=== PATIENT | female | born 1995 | race African-American/Black ===

== ENCOUNTER 2022-10-22 07:28 | Inpatient (IN) | payer MEDICAID, OTHER ==
[~2022-10-22] VITALS: Ht 154.9 cm; Wt 92.1 kg
[2022-10-22] MEDS ORDERED: NALOXONE HCL 0.4 MG/ML 1ML VIAL IM PRN (10:00)
[2022-10-22] MEDS ORDERED: RHO(D) IMMUNE GLOBULIN 300 MCG/SYR IM NR (10:00)
[2022-10-22] MEDS ORDERED: LIDOCAINE HCL 1% 20ML VIAL (Pyxis) INJ INFIL SCH (10:00)
[2022-10-22] MEDS ORDERED: CARBOPROST TROMETHAMINE 250 MCG/ML AMPUL IM PRN (10:00)
[2022-10-22] MEDS ORDERED: METHYLERGONOVINE MALEATE 0.2 MG/ML IM PRN (10:00)
[2022-10-22 11:28] LABS: CLARITY URINE CLEAR (CLEAR); COLOR URINE YELLOW (YELLOW); KETONES URINE NEGATIVE (NEGATIVE); LEUKOCYTE ESTERASE URINE 2+ (NEGATIVE); NITRITE URINE NEGATIVE (NEGATIVE); OCCULT BLOOD URINE NEGATIVE (NEGATIVE); PROTEIN URINE NEGATIVE (NEGATIVE); SPECIFIC GRAVITY URINE 1.008 (1.005-1.030); UROBILINOGEN URINE 0.2 E.U./dL (0.2-1.0)
[2022-10-22 11:40] LABS: BASOPHILS % 0.8 % (0.0-2.0); EOSINOPHILS % 0.6 % (0.0-5.0); HEMATOCRIT. 34.5 % (36.0-48.0); HEMOGLOBIN. 11.2 g/dL (12.0-16.0); LYMPHOCYTES % 19.7 % (20.0-50.0); MEAN CORPUSCULAR HEMOGLOBIN 28.1 pg (28.0-32.0); MEAN CORPUSCULAR VOLUME 86.5 fL (81.0-99.0); MEAN PLATELET VOLUME 10.6 fl (7.4-10.4); MONOCYTES % 7.8 % (2.0-8.0); NEUTROPHILS % 71.1 % (40.0-76.0); PLATELET 224 x1000/uL (130-400); RED BLOOD CELL COUNT 3.99 mill/uL (4.2-5.4); RED CELL DISTRIBUTION WIDTH 15.9 % (11.6-14.6)
[2022-10-22 11:46] LABS: *AMPHETAMINES SCREEN URINE NEGATIVE (NEGATIVE); *BARBITURATES SCREEN URINE NEGATIVE (NEGATIVE); *BENZODIAZEPINES SCREEN URINE NEGATIVE (NEGATIVE); *COCAINE SCREEN URINE NEGATIVE (NEGATIVE); CANNABINOID URINE SCREEN NEGATIVE (NEGATIVE); METHADONE URINE SCREEN NEGATIVE (NEGATIVE); OPIATES URINE SCREEN NEGATIVE (NEGATIVE); PHENCYCLIDINE URINE SCREEN NEGATIVE (NEGATIVE)
[2022-10-22 11:49] LABS: INR 0.9; PARTIAL THROMBOPLASTIN TIME 25.9 sec (23.4-31.0); PROTHROMBIN TIME 10.2 sec (9.6-11.0)
[2022-10-22] MEDS: LACTATED RINGERS 1,000 ML IV SCH ×2 (11:51→12:56)
[2022-10-22 12:35] LABS: HEPATITIS B SURFACE ANTIGEN NEGATIVE
[2022-10-22] MEDS: OXYTOCIN 30 UNITS/500ML NS PMX 500 ML IV SCH (13:02)
[2022-10-22] MEDS ORDERED: MEPERIDINE HCL/PF 50MG/ML CPJ IM PRN (20:45)
[2022-10-22] MEDS ORDERED: NALOXONE HCL 0.4MG/ML VIAL IV PRN (21:00)
[2022-10-23] MEDS ORDERED: ONDANSETRON HCL 4MG/2ML INJ IV PRN (03:30)
[2022-10-23] MEDS ORDERED: ROPIVACAINE HCL/PF EPIDURAL 200 ML EPI ONE (17:05)
[2022-10-23] MEDS: LACTATED RINGERS 1,000 ML IV SCH ×3 (18:00→22:29)
[2022-10-24] MEDS ORDERED: SODIUM CHLORIDE 0.9% 1,000 ML IV ONE (04:00)
[2022-10-24] MEDS: LACTATED RINGERS 1,000 ML IV SCH (04:46)
[2022-10-24] MEDS ORDERED: LIDOCAINE 2%/EPINEPHRINE 1:200,000 20 ML VIAL INJ ONE (06:00)
[2022-10-24] MEDS ORDERED: FENTANYL CITRATE/PF 50MCG/ML 2ML VIAL ONE (06:31)
[2022-10-24] MEDS ORDERED: CEFAZOLIN SODIUM 1000MG/VIAL ONE (06:52)
[2022-10-24] MEDS ORDERED: ONDANSETRON HCL 4MG/2ML INJ ONE (06:56)
[2022-10-24] MEDS ORDERED: OXYTOCIN 10 UNITS/ML 1ML ONE (06:56)
[2022-10-24] MEDS ORDERED: MORPHINE SULFATE/PF 1MG/ML 10ML AMP ONE (06:56)
[2022-10-24] MEDS ORDERED: METHYLERGONOVINE MALEATE 0.2 MG/ML ONE (07:00)
[2022-10-24] MEDS ORDERED: KETOROLAC 60MG/2ML VIAL IM ONE (07:13)
[2022-10-24] MEDS ORDERED: DIPHENHYDRAMINE 50MG/ML VIAL ONE (07:14)
[2022-10-24] MEDS ORDERED: TRANEXAMIC ACID 10 ML ONE (07:14)
[2022-10-24] MEDS ORDERED: DIPHENHYDRAMINE 50MG/ML VIAL IV PRN (08:45)
[2022-10-24] MEDS ORDERED: NALOXONE HCL 0.4 MG/ML 1ML VIAL IV PRN (08:45)
[2022-10-24] MEDS: OXYTOCIN 30 UNITS/500ML NS PMX 500 ML IV SCH ×2 (08:55→13:00)
[2022-10-24 10:30] VITALS: BP 104/60
[2022-10-24 10:45] VITALS: BP 112/62
[2022-10-24 11:15] VITALS: BP 117/73
[2022-10-24] MEDS ORDERED: OXYTOCIN 30 UNITS/500ML NS PMX 500 ML IV SCH (11:30)
[2022-10-24] MEDS ORDERED: DIPHENHYDRAMINE 25MG CAPSULE PO PRN (11:30)
[2022-10-24] MEDS ORDERED: HEMORRHOIDAL SUPP PR PRN (11:30)
[2022-10-24] MEDS ORDERED: ACETAMINOPHEN WITH CODEINE 300/30MG TABLET PO PRN (11:30)
[2022-10-24] MEDS ORDERED: IBUPROFEN 400MG TABLET PO PRN (11:30)
[2022-10-24] MEDS ORDERED: RHO(D) IMMUNE GLOBULIN 300 MCG/SYR IM PRN (11:30)
[2022-10-24] MEDS ORDERED: LANOLIN OINT 7GM TUBE TOP PRN (11:30)
[2022-10-24] MEDS: MAGNESIUM/ALUMINUM HYDROXIDE/SIMETHICONE 30ML UDC PO SCH ×2 (12:30→17:12)
[2022-10-24] MEDS: KETOROLAC 30MG/ML VIAL IV SCH ×2 (14:59→21:10)
[2022-10-24 15:25] VITALS: BP 99/53
[2022-10-24 20:00] VITALS: BP 101/64
[2022-10-24] MEDS ORDERED: DOCUSATE SODIUM 100MG CAPSULE PO SCH (21:00)
[2022-10-25 00:30] VITALS: BP 100/62
[2022-10-25] MEDS ORDERED: KETOROLAC 30MG/ML VIAL IV SCH (02:45)
[2022-10-25 03:40] VITALS: BP 100/61
[2022-10-25 06:15] LABS: HEMATOCRIT. 29.2 % (36.0-48.0); HEMOGLOBIN. 9.6 g/dL (12.0-16.0); MEAN CORPUSCULAR HEMOGLOBIN 28.3 pg (28.0-32.0); MEAN CORPUSCULAR VOLUME 85.9 fL (81.0-99.0); MEAN PLATELET VOLUME 9.6 fl (7.4-10.4); PLATELET 164 x1000/uL (130-400); RED BLOOD CELL COUNT 3.39 mill/uL (4.2-5.4); RED CELL DISTRIBUTION WIDTH 16.1 % (11.6-14.6)
[2022-10-25 07:30] VITALS: BP 107/59
[2022-10-25] MEDS: FERROUS SULFATE 325MG TABLET PO SCH ×3 (08:39→17:37)
[2022-10-25] MEDS: PRENATAL VIT/FE FUMARATE/FA TABLET PO SCH (08:39)
[2022-10-25] MEDS: MAGNESIUM/ALUMINUM HYDROXIDE/SIMETHICONE 30ML UDC PO SCH ×3 (08:39→17:30)
[2022-10-25] MEDS ORDERED: AMPICILLIN 2,000 MG in SODIUM CHLORIDE 0.9% 100 ML IV SCH (09:00)
[2022-10-25] MEDS: AMPICILLIN 2GM in NS 100ML 100 ML IV SCH ×2 (09:28→14:52)
[2022-10-25 13:49] LABS: PLATELET ESTIMATE NORMAL
[2022-10-25 15:30] VITALS: BP 102/50
[2022-10-25] MEDS: IBUPROFEN 800MG TABLET PO PRN ×2 (16:35→21:28)
[2022-10-25 20:00] VITALS: BP 101/65
[2022-10-25] MEDS ORDERED: AMPICILLIN 2GM in NS 100ML 100 ML IV SCH (23:15)
[2022-10-25 23:50] LABS: HEMOGLOBIN. 10.1 g/dL (12.0-16.0); MEAN CORPUSCULAR HEMOGLOBIN 27.8 pg (28.0-32.0); MEAN PLATELET VOLUME 9.2 fl (7.4-10.4); PLATELET 170 x1000/uL (130-400); RED BLOOD CELL COUNT 3.65 mill/uL (4.2-5.4)
[2022-10-26 00:20] LABS: PLATELET ESTIMATE NORMAL
[2022-10-26] MEDS: IBUPROFEN 800MG TABLET PO PRN ×3 (03:35→21:24)
[2022-10-26 04:00] VITALS: BP 108/75
[2022-10-26 06:28] LABS: HEMATOCRIT. 28.5 % (36.0-48.0); HEMOGLOBIN. 9.4 g/dL (12.0-16.0); MEAN CORPUSCULAR HEMOGLOBIN 28.3 pg (28.0-32.0); MEAN CORPUSCULAR VOLUME 85.9 fL (81.0-99.0); MEAN PLATELET VOLUME 9.4 fl (7.4-10.4); PLATELET 158 x1000/uL (130-400); RED BLOOD CELL COUNT 3.32 mill/uL (4.2-5.4); RED CELL DISTRIBUTION WIDTH 16.6 % (11.6-14.6)
[2022-10-26 08:23] VITALS: BP 110/70
[2022-10-26 12:13] LABS: PLATELET ESTIMATE NORMAL
[2022-10-26] MEDS: MAGNESIUM/ALUMINUM HYDROXIDE/SIMETHICONE 30ML UDC PO SCH ×2 (13:38→21:24)
[2022-10-26] MEDS: FERROUS SULFATE 325MG TABLET PO SCH ×2 (13:38→21:23)
[2022-10-26] MEDS: PRENATAL VIT/FE FUMARATE/FA TABLET PO SCH (13:38)
[2022-10-26 20:00] VITALS: BP 118/76
[2022-10-27 04:30] VITALS: BP 106/70
[2022-10-27] MEDS ORDERED: IBUP-2030 MT (07:56)
[2022-10-27 09:15] VITALS: BP 110/70
[2022-10-27] MEDS: MAGNESIUM/ALUMINUM HYDROXIDE/SIMETHICONE 30ML UDC PO SCH (09:58)
[2022-10-27] MEDS: FERROUS SULFATE 325MG TABLET PO SCH (09:58)
[2022-10-27] MEDS: IBUPROFEN 800MG TABLET PO PRN (09:58)
[2022-10-27] MEDS: PRENATAL VIT/FE FUMARATE/FA TABLET PO SCH (09:58)
== END 2022-10-27 11:05 | disposition home or self-care (01) | DRG 540 ==
LOC: 8 EST LDRP 07:28 → OBSVTOIN 07:28 → 8EST 10-24 10:31
PROVIDERS: ADMIT Obstetrics & Gynecology; ATTEND Obstetrics & Gynecology
PROC: 10D00Z1 Extraction of Products of Conception, Low, Open Approach (ICD-10-PCS; principal; 2022-10-24)
DX: O48.0 Post-term pregnancy (principal); D62 Acute posthemorrhagic anemia; O41.03X0 Oligohydramnios, third trimester, not applicable or unspecified; O77.0 Labor and delivery complicated by meconium in amniotic fluid; Z20.822 Contact with and (suspected) exposure to COVID-19; O99.02 Anemia complicating childbirth; O99.12 Other diseases of the blood and blood-forming organs and certain disorders involving the immune mechanism complicating childbirth; Z3A.40 40 weeks gestation of pregnancy; D72.829 Elevated white blood cell count, unspecified; Z37.0 Single live birth
CPT/HCPCS: 36415; 76805; 76818; 80305; 81003; 85025; 86592; 86703; 86762; 86850; 86900; 87340; 87426; 88307; 99281; J0290; J0690; J1200; J1885; J2175; J2210; J2274; J2405; J2795; J3010; J3490; J7050; J7120; J2590